=== PATIENT | female | born 1950 | race Caucasian/White ===

== ENCOUNTER → 2024-04-25 14:52 | Outpatient (REF) | payer OTHER, SELFPAY | LOC: HWWDC 14:52 | PROVIDERS: ATTENDING PHYSICIAN Family Medicine Sports Medicine | DX: Z12.31 Encounter for screening mammogram for malignant neoplasm of breast (principal) | CPT/HCPCS: 77063; 77067 ==

== ENCOUNTER → 2025-05-27 08:28 | Outpatient (REF) | payer MEDICARE, SELFPAY | LOC: HWWDC 08:28 | PROVIDERS: ATTENDING PHYSICIAN Family Medicine Sports Medicine | DX: Z12.31 Encounter for screening mammogram for malignant neoplasm of breast (principal) | CPT/HCPCS: 77063; 77067 ==